=== PATIENT | female | born 1955 | race Caucasian/White ===

== ENCOUNTER → 2017-02-17 | Outpatient (CLI) | payer OTHER ==
[~2017-02-17] MED LIST: ASPI81TA28 PO; ATEN50TA PO; FELO10TA PO; HYDR25TA4 PO; LOSA1TAB38 PO; LPT/20 PO; QUESTRAN PO; SERT100T PO
[2017-02-17 13:34] LABS: ALT/SGPT 20 U/L (12-78); BLOOD UREA NITROGEN 15 mg/dl (7-18); BUN/CREATININE RATIO 20.1 (10-20); CARBON DIOXIDE 27 mmol/L (21-32); CHLORIDE 105 mmol/L (98-107); CHOLESTEROL 190 mg/dl (0-200); CREATININE 0.72 mg/dl (0.60-1.20); GLUCOSE 103 mg/dl (70-99); POTASSIUM 3.6 mmol/L (3.5-5.1); SODIUM 140 mmol/L (136-145); TRIGLYCERIDES 82 mg/dl (0-150); VERY LOW DENSITY LIPOPROT CALC 16 mg/dl
[2017-02-17 13:38] LABS: ALB/GLOB RATIO 1.2 (0.9-2); ALKALINE PHOSPHATASE 74 U/L (45-117); AST/SGOT 16 U/L (15-37); CALCIUM 9.4 mg/dl (8.5-10.1); CHOLESTEROL/HDL RATIO 2.4; HDL CHOLESTEROL 79 mg/dl; LDL CHOLESTEROL CALCULATED 95 mg/dl
== END | disposition home or self-care (01) ==
LOC: C.LABPVFM 09:07
PROVIDERS: ATTEND Family Medicine
DX: F41.9 Anxiety disorder, unspecified (principal); E78.5 Hyperlipidemia, unspecified; R91.8 Other nonspecific abnormal finding of lung field; I10 Essential (primary) hypertension; A04.7 Enterocolitis due to Clostridium difficile

== ENCOUNTER → 2017-04-18 | Outpatient (CLI) | payer OTHER ==
--- NOTE | 2017-04-18 12:28 | DIAGNOSTIC IMAGING REPORT ---
L-SPINE MIN 4 VIEWS ROUTINE HISTORY:61 yearsFemaleAcute low back pain with bilateral sciatica . No known trauma. COMPARISON: None available. TECHNIQUE: 5 views of the lumbar spine. FINDINGS: 5 nonrib-bearing lumbar type vertebral segments are present. No spondylolysis or spondylolisthesis is identified. Vertebral body heights are well-maintained without fracture or dislocation identified. Intervertebral disc space narrowing is seen most prominently at the L3-L4 and L5-S1 levels. There is moderate facet arthropathy at L5-S1. There is atherosclerosis of the aorta. Imaged abdomen is otherwise unremarkable. IMPRESSION: 1. No acute bony normality. 2. Intervertebral disc space narrowing is seen most prominently at the L3-L4 and L5-S1 levels. Moderate facet arthropathy at L5-S1. The above report was generated using voice recognition software. It may contain grammatical, syntax or spelling errors. Electronically signed by: Pola Bee M.D. 04/18/2017 12:27 PM Dictated Date/Time: 04/18/2017 12:24 PM
[2017-04-18 17:49] LABS: URINE APPEARANCE CLEAR (CLEAR); URINE BILIRUBIN NEG (NEG); URINE COLOR YELLOW; URINE EPITHELIAL CELL AUTO 0-5 /lpf (0-5); URINE NITRITE NEG (NEG); URINE SPECIFIC GRAVITY 1.014 (1.000-1.030); UROBILINOGEN NEG (NEG)
[2017-04-18 17:56] LABS: MANUAL MICROSCOPIC REQUIRED? NO; REVIEW REQ? NO
== END | disposition home or self-care (01) ==
LOC: C.RADPV 12:00
PROVIDERS: ATTEND Nurse Practitioner
DX: M54.41 Lumbago with sciatica, right side (principal); M54.42 Lumbago with sciatica, left side; M99.73 Connective tissue and disc stenosis of intervertebral foramina of lumbar region

== ENCOUNTER → 2017-09-27 | Outpatient (CLI) | payer OTHER | END | disposition home or self-care (01) | LOC: C.LABPVFM 15:45 | PROVIDERS: ATTEND Family Medicine | DX: K52.9 Noninfective gastroenteritis and colitis, unspecified (principal) ==

== ENCOUNTER → 2017-11-28 | Outpatient (CLI) | payer OTHER ==
[~2017-11-28] MED LIST changes: -LPT/20 PO; +LPT20 PO; +OPTIRAY 320 IV PRN
--- NOTE | 2017-11-28 08:36 | DIAGNOSTIC IMAGING REPORT ---
CT OF THE CHEST WITH IV CONTRAST CLINICAL HISTORY: R91.8 pulmonary nodules COMPARISON STUDY: 08/08/2017 TECHNIQUE: Following the IV administration of 92 mL of Optiray-320, CT of the thorax was performed from the thoracic inlet to the lung bases. Images are reviewed in the axial, sagittal, and coronal planes. IV contrast was administered without complication. A dose lowering technique was utilized adhering to the principles of ALARA. CT DOSE: 171.05 mGycm FINDINGS: Thyroid: Imaged portions of the thyroid gland are normal in appearance. Thoracic aorta: The thoracic aorta is normal in course and caliber, noting standard 3-vessel arch anatomy. No aneurysm or dissection is seen. Pulmonary vasculature: The pulmonary trunk is normal in caliber. There are no central filling defects identified to suggest pulmonary embolus. Note that this examination was not protocoled for the evaluation of pulmonary emboli. HEART: The heart is normal in size and configuration, without pericardial effusion. Lungs and pleural spaces: There is pulmonary emphysema. There is a stable irregular 4 mm left upper lobe pulmonary nodule as visualized in image #[id number]. The adjacent 5 mm pulmonary nodule described on the prior study is difficult to discern on the current examination. There is a stable 3 mm right upper lobe pulmonary nodule as visualized in image #[id number]. No new or enlarging pulmonary nodules are visualized. There is no focal pulmonary consolidation. There are no pleural effusions. Mediastinum: There is no evidence of pathologic mediastinal lymphadenopathy Josefa: There is no evidence of pathologic hilar adenopathy Axilla: There is no evidence of pathologic axillary lymphadenopathy Upper abdomen: Partially visualized upper abdominal viscera is within normal limits. Skeletal structures: There are no lytic or blastic osseous lesions. IMPRESSION: 1. Moderate to severe emphysema 2. No evidence of focal pulmonary consolidation 3. The previously identified 5 mm left upper lobe pulmonary nodule is difficult to discern on the current study. Other tiny nodules remain stable. In a high risk patient, 12 month follow-up is optional. Electronically signed by: Hayder Artis M.D. 11/28/2017 8:34 AM Dictated Date/Time: 11/28/2017 8:27 AM
== END | disposition home or self-care (01) ==
LOC: C.CTS 08:07
PROVIDERS: ATTEND Family Medicine
DX: R91.8 Other nonspecific abnormal finding of lung field (principal); J43.9 Emphysema, unspecified

== ENCOUNTER → 2017-12-26 | Outpatient (CLI) | payer OTHER ==
[~2017-12-26] MED LIST changes: -OPTIRAY 320 IV PRN
--- NOTE | 2017-12-26 14:12 | MAMMOGRAPHY REPORT ---
BILATERAL DIGITAL SCREENING MAMMOGRAM TOMOSYNTHESIS WITH CAD: 12/26/2017 CLINICAL HISTORY: Routine screening. Patient has no complaints. TECHNIQUE: Breast tomosynthesis in addition to standard 2D mammography was performed. Current study was also evaluated with a Computer Aided Detection (CAD) system. COMPARISON: [facility]2015 [facility] BREAST COMPOSITION: The tissue of both breasts is extremely dense, which lowers the sensitivity of m ammography. FINDINGS: There is a new small cluster of calcifications seen within the right superior breast on the MLO view, not clearly evident on the cc view but thought to project laterally based on the tomosynth esis localizer bar. Recommend spot magnification views and right XCCL view for further evaluation. The remainder of both breasts are not significantly changed, without suspicious masses, calcification s, or areas of architectural distortion noted. A linear scar marker denotes a scar on the right supe rior breast. Other scattered bilateral benign-appearing calcifications are not significantly changed . Mildly prominent lymph nodes are seen within bilateral axillary regions, which appear normal morph ologically and are also stable dating back to the 2013 exam. IMPRESSION: ACR BI-RADS CATEGORY 0: INCOMPLETE EVALUATION: NEED ADDITIONAL IMAGING EVALUATION Right breast calcifications, for which additional imaging evaluation is recommended. The patient liz l be called to schedule an appointment. Approximately 10% of breast cancers are not detected with mammography. A negative mammographic report should not delay biopsy if a clinically suggestive mass is present. Karrie Green M.D. /:12/26/2017 12:06:23 Police Cadet: Meghan MONGE(Rae)(M), [facility] letter sent: Addl Imaging 0 BI-RADS Code: ACR BI-RADS Category 0: Incomplete Evaluation: Need Additional Imaging Evaluation
== END | disposition home or self-care (01) ==
LOC: C.MAMM 09:08
PROVIDERS: ATTEND Family Medicine
DX: Z12.31 Encounter for screening mammogram for malignant neoplasm of breast (principal); R92.0 Mammographic microcalcification found on diagnostic imaging of breast

== ENCOUNTER → 2018-01-02 | Outpatient (CLI) | payer OTHER ==
--- NOTE | 2018-01-03 07:51 | MAMMOGRAPHY REPORT ---
UNILATERAL RIGHT DIGITAL DIAGNOSTIC MAMMOGRAM: 01/02/2018 CLINICAL HISTORY: 62-year-old woman called back from screening mammography for a new small cluster of calcifications in the superior right breast on the MLO view. History of prior benign excisional bio psy of the right breast. TECHNIQUE: Spot magnification right XCCL and ML views were obtained. COMPARISON: Comparison is made to exams dated: 12/26/2017 mammogram - [facility], 1 10/19/2014 mammogram, 08/12/2014 mammogram, 08/01/2013 mammogram, 07/31/2012 mammogram, and 06/02/2011 m ammogram - [facility]. BREAST COMPOSITION: The tissue of the right breast is heterogeneously dense, which may obscure small masses. FINDINGS: The spot magnification views of the right breast demonstrates an 8 mm cluster of pleomorph ic microcalcifications in the upper outer posterior breast. There is possible associated asymmetry b ased on the exaggerated lateral CC magnified view. When comparing back to prior available mammograms , the microcalcifications are new and are therefore indeterminate. Definitive characterization with a stereotactic guided biopsy is recommended. IMPRESSION: ACR BI-RADS CATEGORY 4: SUSPICIOUS Right breast stereotactic guided biopsy is recommended for a new 8 mm cluster of pleomorphic microcal cifications in the upper outer quadrant posteriorly. These results and recommendations were discussed with the patient at the time of the exam. She tenta tively scheduled the biopsy prior to leaving the department. Approximately 10% of breast cancers are not detected with mammography. A negative mammographic report should not delay biopsy if a clinically suggestive mass is present. Divina Moreno M.D. ay/:01/02/2018 12:18:18 Electronics Assembler: Meghan Galindo, [facility] letter sent: Abnormal 4/5 BI-RADS Code: ACR BI-RADS Category 4: Suspicious
== END | disposition home or self-care (01) ==
LOC: C.MAMM 09:45
PROVIDERS: ATTEND Family Medicine
DX: R92.1 Mammographic calcification found on diagnostic imaging of breast (principal)

== ENCOUNTER → 2018-01-09 | Outpatient (CLI) | payer OTHER ==
--- NOTE | 2018-01-09 10:53 | Discharge Instructions ---
Discharge Instructions Procedure Procedure Date: Jan 09, 2018. Reason for visit: Right Calcs. Discharge Discharge Date: Jan 09, 2018. Discharge Diagnosis: post right breast stereotactic guided biopsy Medications Restart Stopped Medication(s): May resume Aspirin tomorrow as long as not bleeding through bandages. Instructions Activity Recommendations: Additional Limitations (see below) Return to School/Work: no limitations Recommended Home Diet: No Limitations Provider Instructions: ACTIVITY RECOMMENDATIONS: * No lifting, pushing, pulling or exercising the affected side for three days. RETURN TO SCHOOL/WORK: * You may return to work/school after the procedure, but do not perform any strenuous activities for 24 to 48 hours. MEDICATIONS: * Tylenol (two 325 mg) every four to six hours if needed for mild pain (if not allergic to Tylenol). DIET: * Resume previous diet. SPECIAL CARE INSTRUCTIONS: * Keep biopsy site dry for 24 hours. May shower after 24 hours, but do not soak (bathe) incision. * May remove Tegaderm (plastic patch) tomorrow AFTER showering. * Leave the steri-strips on for one week. Allow the steri-strips to fall off by themselves. If not off after one week, you may remove them. You may place a Bandaid crosswise over the strips, if desired. * Apply ice 10 minutes on and 10 minutes off as needed. * Wear a bra at bedtime to sleep more comfortably for 2-3 days. * Your referring physician should have the results after approximately 5 to 7 business days. * Call for unusual bleeding, fever, drainage, etc or if you have any questions call [phone] during normal business hours or after hours call Dr Moreno, . FOLLOW UP VISIT: Follow-up with Referring Physician as scheduled. Allergies Coded Allergies: Solifenacin (Verified Allergy, Unknown, DRY MOUTH, 07/17/16) Sulfa Antibiotics (Verified Allergy, Unknown, RASH, 07/17/16) Manju Aranda Recommendations: Call your doctor if: * Temperature above 101 degrees * Pain not relieved by pain medicine ordered * There is increased drainage or redness from any incision * You have any unanswered questions or concerns. Your Doctors Instructions noted above were prepared by provider Divina Moreno. Patient Signature Section: Patient Instructions Signature Page Amy Fitzgerald Patient (or Guardian) Signature/Date: I have read and understand the instructions given to me by my caregivers. Caregiver/RN/Doctor Signature/Date: The above-named patient and/or guardian has received patient instructions on this date. + Original Patient Signature Page (only) stays with chart. Please make copy for patient.
--- NOTE | 2018-01-09 15:20 | MAMMOGRAPHY REPORT ---
STEREOTACTIC GUIDED BIOPSY RIGHT BREAST: 01/09/2018 CLINICAL HISTORY: New suspicious grouped pleomorphic microcalcifications in the upper outer posterior right breast. Patient presents for stereotactic biopsy. COMPARISON: Comparison is made to exams dated: 01/02/2018 mammogram, 12/26/2017 mammogram - [facility], 08/19/2015 mammogram, 08/12/2014 mammogram, 08/01/2013 mammogram, and 07/31/2012 m ammogram - [facility]. PATIENT CONSENT: After explaining the risks, benefits and alternatives of the procedure to the patien t, informed consent was obtained both verbally and in writing. Specific risks include: Bleeding, inf ection, puncture of adjacent structure, pain, nontarget biopsy, sampling error, metal allergy and med ication reaction. PROCEDURE DESCRIPTION: A time-out was performed and the right breast was confirmed as the site of bio psy. Given the far posterior and lateral location of the calcifications, the patient's breast was pl aced in lateralmedial compression with her arm through the hole and a infrastructure technician image was obtained which demonstrates the calcifications in question. However blood vessels were seen lying numerous blood v essels were seen in the area of the calcifications and the patient was repositioned multiple times to try to offset the calcifications from the vessels. Additional attempts in the CC projection were al so performed but the calcifications were not identified. Therefore we planned to proceed with a biop sy in the LM projection and felt as though the calcifications were displaced from the vessels enough to safely biopsy. A tomosynthesis infrastructure technician view was obtained and the calcifications were targeted utilizing the coordinate s obtained by the computer. The skin was prepped with Betadine. 1% Lidocaine with and without epinip herine was administered as local anesthesia. A small skin incision was made. Through the incision, t he needle was inserted to the depth determined by the computer. 6 samples were obtained using a Tigerstripeiva 9-gauge vacuum-assisted biopsy device. The specimen radiograph demonstrated several representa tive microcalcifications, therefore, a metallic marker was placed at the biopsy site. A large hematoma formed after pressure was held for 15 minutes and therefore 30 minutes of additional manual compression were placed in the right axillary tail and upper outer quadrant to try to minimiz e any additional hematoma formation. The patient was ultimately wrapped in a pressure dressing prior to leaving the department and was in satisfactory condition. The samples were sent to pathology and a single appropriately labeled container. Postprocedure CC and ML views of the right breast were obtained. There is a dumbbell-shaped biopsy marker clip and large hematoma in the right upper outer axillary tail region at the site of the biops ied calcifications. In the MLO projection, the hematoma measures at least 7 x 10 cm. When comparing to an MLO view performed at least 30 minutes prior to the final image the hematoma had not significa ntly increased and therefore the patient left the department in satisfactory condition. IMPRESSION: STEREOTACTIC GUIDED BIOPSY Status post right breast stereotactic guided biopsy of suspicious pleomorphic microcalcifications in the upper outer posterior right breast. The patient will receive notification of the biopsy results from her referring physician. I will als o contact the patient later this evening and tomorrow to ensure she is feeling well given the large s ize of her postbiopsy hematoma. Divina Moreno M.D. ay/:01/09/2018 13:50:53 Wood Buffer: Meghan VENTURA)(John), [facility]
--- NOTE | 2018-01-09 15:23 | MAMMOGRAPHY REPORT ---
UNILATERAL RIGHT DIGITAL DIAGNOSTIC MAMMOGRAM: 01/09/2018 CLINICAL HISTORY: Status post stereotactic biopsy of pleomorphic microcalcifications in the upper out er far posterior right breast. Please refer to the report from right breast stereotactic guided biopsy performed at the same time fo r full detail. IMPRESSION: POST PROCEDURE IMAGING FOR MARKER PLACEMENT Please refer to the report from right breast stereotactic guided biopsy performed at the same time fo r full detail. Approximately 10% of breast cancers are not detected with mammography. A negative mammographic report should not delay biopsy if a clinically suggestive mass is present. Divina Moreno M.D. ay/:01/09/2018 10:52:36 Oil Speculator: Kita MONGE(R)(John), [facility] BI-RADS Code: Post Procedure Imaging For Marker Placement
== END | disposition home or self-care (01) ==
LOC: C.MAMM 09:49
PROVIDERS: ATTEND Family Medicine
DX: R92.0 Mammographic microcalcification found on diagnostic imaging of breast (principal); D24.1 Benign neoplasm of right breast

== ENCOUNTER → 2018-01-25 | Outpatient (CLI) | payer OTHER ==
[2018-01-25 09:51] LABS: ALBUMIN 3.8 gm/dl (3.4-5.0); ALT/SGPT 22 U/L (12-78); AST/SGOT 18 U/L (15-37); BLOOD UREA NITROGEN 18 mg/dl (7-18); CALCIUM 9.1 mg/dl (8.5-10.1); CARBON DIOXIDE 30 mmol/L (21-32); CHOLESTEROL 185 mg/dl (0-200); GLUCOSE 96 mg/dl (70-99); POTASSIUM 4.3 mmol/L (3.5-5.1); SODIUM 134 mmol/L (136-145)
[2018-01-25 09:53] LABS: ALKALINE PHOSPHATASE 93 U/L (45-117); LDL CHOLESTEROL CALCULATED 98 mg/dl; TOTAL PROTEIN 7.4 gm/dl (6.4-8.2)
== END | disposition home or self-care (01) ==
LOC: C.LAB1850 07:54
PROVIDERS: ATTEND Family Medicine
DX: I10 Essential (primary) hypertension (principal); F32.9 Major depressive disorder, single episode, unspecified; E78.00 Pure hypercholesterolemia, unspecified; R91.8 Other nonspecific abnormal finding of lung field; K52.9 Noninfective gastroenteritis and colitis, unspecified